=== PATIENT | male | born 1955 | race Asian ===

== ENCOUNTER 2020-06-14 19:42 | Emergency (ER) | payer OTHER ==
[~2020-06-14] VITALS: Ht 162.6 cm; Wt 81.2 kg
[2020-06-14 20:59] LABS: PLATELET COUNT 198 K/uL (142-355)
[2020-06-14 21:04] LABS: POTASSIUM 4.5 mmol/L (3.6-5.2)
[2020-06-14 21:27] VITALS: BP 118/62; TEMP 98.3
[2020-06-15] MEDS ORDERED: ARTIFICIAL TEAR1 SOL OPTH (03:14)
[2020-06-15] MEDS ORDERED: CRANBERRY450 MG PO (03:17)
[2020-06-15] MEDS ORDERED: DIVA500T2 PO (03:27)
[2020-06-15] MEDS ORDERED: [UNRECOGNIZED DRUG - OTHER] OPTH (03:31)
[2020-06-15] MEDS ORDERED: LACTULOSE10 GM/15 M PO (03:40)
[2020-06-15] MEDS ORDERED: LATANOPROST0.005 % OPTH (03:46)
[2020-06-15] MEDS ORDERED: OMEPRAZOLE DR20 MG PO (03:52)
[2020-06-15] MEDS ORDERED: PANTOPRAZOLE SO40 M1 PO (04:05)
[2020-06-15] MEDS ORDERED: PRAVACHOL20 MG PO (04:12)
[2020-06-15] MEDS ORDERED: REMERON SOLTAB15 MG PO (04:14)
[2020-06-15] MEDS ORDERED: ZONEGRAN100 MG PO (04:18)
[2020-06-15] MEDS ORDERED: BUSPIRONE HYDRO15 MG PO (04:21)
[2020-06-15] MEDS ORDERED: [UNRECOGNIZED DRUG - OTHER] PO (04:24)
[2020-06-15] MEDS ORDERED: KEPPRA750 MG PO (04:26)
[2020-06-15] MEDS ORDERED: LACO200T PO (04:29)
== END 2020-06-14 21:38 | disposition other institution (70) ==
LOC: ED 19:42
PROVIDERS: Family Medicine
DX: R62.7 Adult failure to thrive (principal); Z91.14 Patient's other noncompliance with medication regimen; Z11.59 Encounter for screening for other viral diseases; Z04.6 Encounter for general psychiatric examination, requested by authority
CPT/HCPCS: 36415; 80053; 85027; 87635; 93005; 99284; G2023; U0003